=== PATIENT | male | born 1995 | race Caucasian/White ===

== ENCOUNTER 2018-07-03 04:06 | Observation (INO) ==
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
[2018-07-03] MEDS ORDERED: SODIUM CHLORIDE 1,000 ML IV SCH (06:30)
[2018-07-03] MEDS: TYLENOL PO PRN ×2 (08:09→17:18)
[2018-07-03 08:31] VITALS: BMI 20.7
[2018-07-04 05:20] VITALS: BP 142/70; TEMP 97.4
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
--- NOTE | 2018-07-04 17:24 | PCM.HOSP ---
- Observation Care Discharge [id number] OBS Care Discharge ([id number]): 07/04 - Subsequent Observation Care [id number] Minutes per Day ([id number]): 07/03
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
== END 2018-07-04 09:18 | disposition home or self-care (01) ==
LOC: ED 04:06 → SCU 06:42
PROVIDERS: ADMIT Emergency Medicine; ATTEND Emergency Medicine
DX: M25.512 Pain in left shoulder (principal); R51 Headache; S06.9X1A Unspecified intracranial injury with loss of consciousness of 30 minutes or less, initial encounter; V89.2XXA Person injured in unspecified motor-vehicle accident, traffic, initial encounter; R41.82 Altered mental status, unspecified
CPT/HCPCS: 36415; 80053; 80306; 81001; 82550; 82553; 84484; 85025; 87081; 93005; 93010; 99284